=== PATIENT | female | born 1950 | race Caucasian/White ===

== ENCOUNTER 2017-11-08 16:14 | Emergency (ER) | payer MEDICARE, OTHER ==
[~2017-11-08] VITALS: Ht 157.5 cm; Wt 79.7 kg
[2017-11-08 17:26] LABS: BASOPHILS # (AUTO) 0.01 x10^3/uL (0-0.1); BASOPHILS % (AUTO) 0 % (0-1); EOSINOPHILS # (AUTO) 0.04 x10^3/uL (0-0.4); EOSINOPHILS % (AUTO) 1 % (1-7); LYMPHOCYTES # (AUTO) 0.85 x10^3/uL (1-3.4); LYMPHOCYTES % (AUTO) 20 % (22-44); MD NO; MEAN CORPUSCULAR HEMOGLOBIN 30.8 pg (27.0-34.8); MEAN CORPUSCULAR HGB CONC 32.5 g/dL (32.4-35.8); MEAN CORPUSCULAR VOLUME 94.6 fL (80-100); MEAN PLATELET VOLUME 6.9 fL (7.4-10.4); MONOCYTES # (AUTO) 0.22 x10^3/uL (0.2-0.8); MONOCYTES % (AUTO) 5 % (2-9); NEUTROPHILS # (AUTO) 3.18 x10^3/uL (1.8-6.8); NEUTROPHILS % (AUTO) 74 % (42-75); PLATELET COUNT 200 x10^3/uL (130-400); RED BLOOD COUNT 3.22 x10^6/uL (3.82-5.3); RED CELL DISTRIBUTION WIDTH 16.9 % (9.6-15.2)
[2017-11-08 17:30] LABS: INTERNATIONAL NORMALIZED RATIO 0.98 (0.93-1.1); PROTHROMBIN TIME 10.2 Seconds (9.6-11.5)
[2017-11-08] MEDS ORDERED: MORPHINE SULFATE 4 MG/ML, 1ML IVPush PRN (17:30)
[2017-11-08 17:37] LABS: ALANINE AMINOTRANSFERASE 32 U/L (12-78); ALBUMIN 3.7 g/dL (3.4-5.0); ANION GAP 9 mmol/L (5-15); CALCIUM 9.4 mg/dL (8.5-10.1); CHLORIDE 108 mmol/L (98-107); CREATININE 0.84 mg/dL (0.55-1.02)
[2017-11-08 17:40] LABS: ALKALINE PHOSPHATASE 97 U/L (45-117); BILIRUBIN,TOTAL 0.3 mg/dL (0.2-1.0); TOTAL PROTEIN 7.7 g/dL (6.4-8.2)
[2017-11-08 17:46] LABS: CULTURE INDICATED? YES; MICROSCOPIC INDICATED
[2017-11-08] MEDS ORDERED: MORPHINE SULFATE 4 MG/ML, 1ML ONE (18:07)
[2017-11-08 18:43] VITALS: BP 121/43
== END 2017-11-08 18:48 | disposition home or self-care (01) ==
LOC: ED 18:15
DX: R53.1 Weakness (principal); D62 Acute posthemorrhagic anemia
CPT/HCPCS: 36415; 80053; 81001; 85025; 85610; 85730; 86850; 86900; 87086; 93005; 96374

== ENCOUNTER → 2017-11-17 | Outpatient (CLI) | payer MEDICARE, OTHER | END | disposition home or self-care (01) | LOC: CVU 12:43 | PROVIDERS: ATTEND Internal Medicine Cardiovascular Disease | DX: Z01.810 Encounter for preprocedural cardiovascular examination (principal); I35.1 Nonrheumatic aortic (valve) insufficiency; E78.5 Hyperlipidemia, unspecified | CPT/HCPCS: 0399T; 93306 ==

== ENCOUNTER → 2017-11-18 | Outpatient (CLI) | payer MEDICARE, OTHER ==
[~2017-11-18] MED LIST: REGADENOSON 0.4 MG/5 ML SYRINGE ONE
== END ==
LOC: CFH 12:04
PROVIDERS: ATTEND Internal Medicine Cardiovascular Disease
DX: Z01.810 Encounter for preprocedural cardiovascular examination (principal)
CPT/HCPCS: 78452; 93017; A9502; J2785

== ENCOUNTER 2017-11-30 08:31 | Inpatient (IN) | payer MEDICARE, OTHER ==
[~2017-11-30] VITALS: Ht 160 cm; Wt 70.1 kg
[2017-11-30] MEDS ORDERED: ONDANSETRON ODT 4 MG PO ONE (09:00)
[2017-11-30] MEDS ORDERED: SODIUM CHLORIDE FLUSH 10ML SYR IVF ONE (09:00)
[2017-11-30] MEDS ORDERED: MORPHINE SULFATE 4 MG/ML, 1ML ONE ×2 (09:18→11:36)
[2017-11-30] MEDS ORDERED: ONDANSETRON ODT 4 MG ONE (09:18)
[2017-11-30] MEDS: MORPHINE SULFATE 4 MG/ML, 1ML IVPush PRN ×2 (09:37→11:38)
[2017-11-30 09:54] LABS: MEAN CORPUSCULAR HEMOGLOBIN 30.5 pg (27.0-34.8); MEAN CORPUSCULAR VOLUME 92.7 fL (80-100); MEAN PLATELET VOLUME 7.3 fL (7.4-10.4); PLATELET COUNT 243 x10^3/uL (130-400); RED BLOOD COUNT 3.59 x10^6/uL (3.82-5.3); RED CELL DISTRIBUTION WIDTH 16.2 % (9.6-15.2)
[2017-11-30 09:58] LABS: ALANINE AMINOTRANSFERASE 37 U/L (12-78); ALBUMIN 3.8 g/dL (3.4-5.0); ANION GAP 8 mmol/L (5-15); CALCIUM 11.8 mg/dL (8.5-10.1); CHLORIDE 103 mmol/L (98-107)
[2017-11-30 09:58] LABS: MICROSCOPIC INDICATED
[2017-11-30 10:00] LABS: ALKALINE PHOSPHATASE 101 U/L (45-117); BILIRUBIN,TOTAL 0.3 mg/dL (0.2-1.0)
[2017-11-30 10:01] LABS: CULTURE INDICATED? YES
[2017-11-30 10:48] LABS: BASOPHILS % (AUTO) 0 % (0-1); EOSINOPHILS # (AUTO) 0.01 x10^3/uL (0-0.4); EOSINOPHILS % (AUTO) 0 % (1-7); LYMPHOCYTES # (AUTO) 0.53 x10^3/uL (1-3.4); LYMPHOCYTES % (AUTO) 9 % (22-44); MD SCAN; MONOCYTES # (AUTO) 0.25 x10^3/uL (0.2-0.8); MONOCYTES % (AUTO) 4 % (2-9); NEUTROPHILS # (AUTO) 5.15 x10^3/uL (1.8-6.8); NEUTROPHILS % (AUTO) 87 % (42-75)
[2017-11-30] MEDS ORDERED: CEFTRIAXONE PMX 1GM/50ML 50 ML ONE (10:53)
[2017-11-30] MEDS ORDERED: CEFTRIAXONE PMX 1GM/50ML 50 ML IV ONE (11:00)
[2017-11-30] MEDS ORDERED: APIX2.5T PO (11:08)
[2017-11-30] MEDS ORDERED: LETR2.5T PO (11:08)
[2017-11-30] MEDS ORDERED: ATOR-2 PO (11:08)
[2017-11-30] MEDS ORDERED: POTA99TA24 PO (11:08)
[2017-11-30] MEDS ORDERED: SODIUM CHLORIDE 0.9% 1,000 ML IV ONE (11:17)
[2017-11-30] MEDS ORDERED: SODIUM CHLORIDE FLUSH 10ML SYR IVF PRN (11:30)
[2017-11-30] MEDS: SODIUM CHLORIDE 0.9% 1,000 ML IV SCH ×2 (12:30→19:50)
[2017-11-30 12:44] VITALS: BP 115/76
[2017-11-30] MEDS ORDERED: TEMAZEPAM 15 MG CAPSULE PO PRN (13:00)
[2017-11-30] MEDS ORDERED: ACETAMINOPHEN 325 MG TABLET PO PRN (13:00)
[2017-11-30] MEDS ORDERED: HYDROcodone/APAP 5/325 TABLET PO PRN (13:00)
[2017-11-30] MEDS ORDERED: hydrALAzine 20 MG/ML, 1ML IVPush PRN (13:00)
[2017-11-30] MEDS ORDERED: morphine SULFATE 10 MG/ML, 1ML IVPush PRN (13:00)
[2017-11-30 13:25] LABS: FREE T4 (FREE THYROXINE) 1.27 ng/dL (0.76-1.46); THYROID STIMULATING HORMONE 0.472 mIU/L (0.358-3.740)
[2017-11-30] MEDS: CEFTRIAXONE PMX 2GM/50ML 50 ML IV SCH (14:01)
[2017-11-30 15:00] VITALS: BP 117/78
[2017-11-30 15:15] VITALS: BP 108/74
[2017-11-30] MEDS ORDERED: DIPHENHYDRAMINE 50 MG/ML, 1ML IVPush ONE (15:18)
[2017-11-30] MEDS ORDERED: DIPHENHYDRAMINE 50 MG/ML, 1ML ONE (15:21)
[2017-11-30] MEDS: ENOXAPARIN 80 MG/0.8 ML SQ SCH (16:50)
[2017-11-30 19:42] VITALS: BP 94/61
[2017-11-30] MEDS: ATORVASTATIN 80 MG TABLET PO SCH (20:40)
[2017-12-01 03:10] VITALS: BP 119/72
[2017-12-01] MEDS: SODIUM CHLORIDE 0.9% 1,000 ML IV SCH ×2 (03:52→22:40)
[2017-12-01] MEDS: ENOXAPARIN 80 MG/0.8 ML SQ SCH ×2 (05:10→18:09)
[2017-12-01 05:24] LABS: ALANINE AMINOTRANSFERASE 31 U/L (12-78); ANION GAP 7 mmol/L (5-15); CHLORIDE 106 mmol/L (98-107)
[2017-12-01 05:26] LABS: ALKALINE PHOSPHATASE 82 U/L (45-117); BILIRUBIN,TOTAL 0.3 mg/dL (0.2-1.0); TOTAL PROTEIN 6.4 g/dL (6.4-8.2)
[2017-12-01 05:32] LABS: BASOPHILS # (AUTO) 0.01 x10^3/uL (0-0.1); BASOPHILS % (AUTO) 0 % (0-1); EOSINOPHILS # (AUTO) 0.05 x10^3/uL (0-0.4); EOSINOPHILS % (AUTO) 1 % (1-7); LYMPHOCYTES # (AUTO) 0.75 x10^3/uL (1-3.4); LYMPHOCYTES % (AUTO) 20 % (22-44); MD NO; MEAN CORPUSCULAR HEMOGLOBIN 30.7 pg (27.0-34.8); MEAN CORPUSCULAR HGB CONC 32.5 g/dL (32.4-35.8); MEAN CORPUSCULAR VOLUME 94.3 fL (80-100); MEAN PLATELET VOLUME 7.4 fL (7.4-10.4); MONOCYTES # (AUTO) 0.33 x10^3/uL (0.2-0.8); MONOCYTES % (AUTO) 9 % (2-9); NEUTROPHILS # (AUTO) 2.61 x10^3/uL (1.8-6.8); NEUTROPHILS % (AUTO) 70 % (42-75); PLATELET COUNT 208 x10^3/uL (130-400); RED BLOOD COUNT 3.06 x10^6/uL (3.82-5.3); RED CELL DISTRIBUTION WIDTH 16.5 % (9.6-15.2)
[2017-12-01 06:51] VITALS: BP 100/64
[2017-12-01] MEDS: POLYETHYLENE GLYCOL 17 GM PACKET PO PRN (07:42)
[2017-12-01] MEDS: LETROZOLE 2.5 MG TABLET PO SCH (07:45)
[2017-12-01] MEDS ORDERED: POTASSIUM PHOSPHATE 44 MEQ in SODIUM CHLORIDE 0.9% 500 ML IV ONE (08:30)
[2017-12-01] MEDS ORDERED: MAGNESIUM SULFATE PMX 4GM/100M 100 ML IV ONE (08:30)
[2017-12-01] MEDS: ONDANSETRON ODT 4 MG PO PRN (10:00)
[2017-12-01] MEDS ORDERED: ONDANSETRON 4 MG TABLET PO PRN (10:30)
[2017-12-01 12:44] VITALS: BP 108/68
[2017-12-01] MEDS ORDERED: DIPHENHYDRAMINE 50 MG/ML, 1ML IVPush SCH (13:30)
[2017-12-01] MEDS: DIPHENHYDRAMINE 50 MG/ML, 1ML IVPush SCH (14:15)
[2017-12-01] MEDS: CEFTRIAXONE PMX 2GM/50ML 50 ML IV SCH (14:15)
[2017-12-01 20:58] VITALS: BP 101/68
[2017-12-01] MEDS ORDERED: GLYCERIN ADULT SUPP PR ONE (22:00)
[2017-12-01] MEDS: ATORVASTATIN 80 MG TABLET PO SCH (22:40)
[2017-12-02] MEDS: ONDANSETRON 2MG/ML, 2ML IVPush PRN (02:00)
[2017-12-02 02:11] VITALS: BP 126/78
[2017-12-02 05:33] LABS: BASOPHILS # (AUTO) 0.01 x10^3/uL (0-0.1); BASOPHILS % (AUTO) 0 % (0-1); EOSINOPHILS # (AUTO) 0.04 x10^3/uL (0-0.4); EOSINOPHILS % (AUTO) 1 % (1-7); LYMPHOCYTES # (AUTO) 0.68 x10^3/uL (1-3.4); LYMPHOCYTES % (AUTO) 14 % (22-44); MD NO; MEAN CORPUSCULAR HEMOGLOBIN 30.8 pg (27.0-34.8); MEAN CORPUSCULAR VOLUME 93.4 fL (80-100); MEAN PLATELET VOLUME 7.4 fL (7.4-10.4); MONOCYTES # (AUTO) 0.34 x10^3/uL (0.2-0.8); MONOCYTES % (AUTO) 7 % (2-9); NEUTROPHILS # (AUTO) 3.64 x10^3/uL (1.8-6.8); NEUTROPHILS % (AUTO) 77 % (42-75); PLATELET COUNT 192 x10^3/uL (130-400); RED BLOOD COUNT 3.03 x10^6/uL (3.82-5.3); RED CELL DISTRIBUTION WIDTH 16.9 % (9.6-15.2)
[2017-12-02 05:41] LABS: ALBUMIN 2.8 g/dL (3.4-5.0); ANION GAP 7 mmol/L (5-15); CALCIUM 11.5 mg/dL (8.5-10.1); CHLORIDE 108 mmol/L (98-107)
[2017-12-02 05:45] LABS: ALANINE AMINOTRANSFERASE 33 U/L (12-78); ALKALINE PHOSPHATASE 84 U/L (45-117); BILIRUBIN,TOTAL 0.2 mg/dL (0.2-1.0); CREATININE 0.71 mg/dL (0.55-1.02); TOTAL PROTEIN 6.6 g/dL (6.4-8.2)
[2017-12-02 06:57] VITALS: BP 112/73
[2017-12-02] MEDS: ENOXAPARIN 80 MG/0.8 ML SQ SCH ×2 (07:04→17:34)
[2017-12-02] MEDS: SODIUM CHLORIDE 0.9% 1,000 ML IV SCH ×2 (07:05→17:41)
[2017-12-02] MEDS: POLYETHYLENE GLYCOL 17 GM PACKET PO PRN (09:38)
[2017-12-02] MEDS: ONDANSETRON ODT 4 MG PO PRN (09:43)
[2017-12-02] MEDS: LETROZOLE 2.5 MG TABLET PO SCH (09:46)
[2017-12-02 12:33] VITALS: BP 113/75
[2017-12-02] MEDS: CEFTRIAXONE PMX 2GM/50ML 50 ML IV SCH (13:55)
[2017-12-02] MEDS: DIPHENHYDRAMINE 50 MG/ML, 1ML IVPush SCH (13:55)
[2017-12-02 18:40] VITALS: BP 114/76
[2017-12-02] MEDS: ATORVASTATIN 80 MG TABLET PO SCH (23:43)
[2017-12-03 01:55] VITALS: BP 128/77
[2017-12-03] MEDS: ONDANSETRON 2MG/ML, 2ML IVPush PRN (02:07)
[2017-12-03] MEDS: SODIUM CHLORIDE 0.9% 1,000 ML IV SCH ×2 (02:21→09:15)
[2017-12-03] MEDS ORDERED: ENOXAPARIN 80 MG/0.8 ML SQ SCH (04:00)
[2017-12-03 07:01] VITALS: BP 122/79
[2017-12-03] MEDS: POLYETHYLENE GLYCOL 17 GM PACKET PO PRN (09:14)
[2017-12-03] MEDS: LETROZOLE 2.5 MG TABLET PO SCH (09:14)
[2017-12-03 12:43] VITALS: BP 120/75
[2017-12-03] MEDS: CEFTRIAXONE PMX 2GM/50ML 50 ML IV SCH (13:29)
[2017-12-03] MEDS: DIPHENHYDRAMINE 50 MG/ML, 1ML IVPush SCH (13:29)
== END 2017-12-03 14:09 | disposition home or self-care (01) | DRG 871 ==
LOC: ED 09:31 → EDIP 11:17 → 3NW 12:05
PROVIDERS: ADMIT Hospitalist; ATTEND Hospitalist
PROC: 0T9B70Z Drainage of Bladder with Drainage Device, Via Natural or Artificial Opening (ICD-10-PCS; principal; 2017-11-30)
DX: A41.9 Sepsis, unspecified organism (principal); E43 Unspecified severe protein-calorie malnutrition; T83.89XA Other specified complication of genitourinary prosthetic devices, implants and grafts, initial encounter; C78.6 Secondary malignant neoplasm of retroperitoneum and peritoneum; C78.00 Secondary malignant neoplasm of unspecified lung; C78.7 Secondary malignant neoplasm of liver and intrahepatic bile duct; D68.69 Other thrombophilia; N13.6 Pyonephrosis; E83.52 Hypercalcemia; C54.1 Malignant neoplasm of endometrium; E78.5 Hyperlipidemia, unspecified; E83.39 Other disorders of phosphorus metabolism; E83.42 Hypomagnesemia; G89.3 Neoplasm related pain (acute) (chronic); K66.9 Disorder of peritoneum, unspecified; R09.02 Hypoxemia; Z79.2 Long term (current) use of antibiotics; Z80.3 Family history of malignant neoplasm of breast; Z80.8 Family history of malignant neoplasm of other organs or systems; Z82.49 Family history of ischemic heart disease and other diseases of the circulatory system; Z85.42 Personal history of malignant neoplasm of other parts of uterus; Z86.718 Personal history of other venous thrombosis and embolism; Z90.49 Acquired absence of other specified parts of digestive tract; Z90.710 Acquired absence of both cervix and uterus; C55 Malignant neoplasm of uterus, part unspecified; Z68.27 Body mass index [BMI] 27.0-27.9, adult; Y83.8 Other surgical procedures as the cause of abnormal reaction of the patient, or of later complication, without mention of misadventure at the time of the procedure; Y92.89 Other specified places as the place of occurrence of the external cause
CPT/HCPCS: 36415; 74176; 80053; 81001; 83605; 83735; 84100; 84145; 84439; 84443; 85014; 85018; 85025; 87040; 87086; 93970; 96374; 96375; 96376; J0696; J1650; J2405; Q0162; J1200; J2270; J3475; J7030; J7040